=== PATIENT | male | born 1965 | race Caucasian/White ===

== ENCOUNTER 2020-01-12 11:32 | Emergency (ER) | payer BC, OTHER ==
[~2020-01-12] VITALS: Ht 177.8 cm; Wt 113.6 kg
[~2020-01-12 11:32] MED LIST: AMBI10TA PO; IBUP200C25 PO
--- NOTE | 2020-01-12 13:01 | REP ---
Clinical: Right knee pain. Technique: AP, lateral, bilateral oblique and sunrise views of the right knee. Findings: Generalized age-related changes are appreciated. No acute fracture dislocation. No definite effusion. Impression: Generalized age-related changes. Electronically Signed by Oni Navas MD 01/12/2020 12:53 P
[2020-01-12 13:19] VITALS: BP 146/96
== END 2020-01-12 13:23 | disposition home or self-care (01) ==
LOC: M ED 11:32
DX: S83.91XA Sprain of unspecified site of right knee, initial encounter (principal); X58.XXXA Exposure to other specified factors, initial encounter; Y92.89 Other specified places as the place of occurrence of the external cause

== ENCOUNTER → 2020-02-06 | Outpatient (CLI) | payer BC, OTHER ==
--- NOTE | 2020-04-01 09:12 | REP ---
MRI OF THE RIGHT KNEE: HISTORY: Pain. FINDINGS: There is a complex tear of the posterior horn of the medial meniscus. The lateral meniscus appears intact. The cruciate ligaments are intact. There is increase signal on T2-weighted images surrounding the medial collateral ligament compatible with a sprain. The lateral collateral ligament is intact. The extensor mechanism is intact. The medial and lateral patellar retinacula are intact. There is moderate chondromalacia of the medial patellar facet with mild subchondral marrow edema. There is mild to moderate diffuse chondromalacia in the medial joint compartment. There is mild subchondral marrow edema in the medial tibial plateau. There is a small joint effusion. There is a Mares's cyst in the medial popliteal fossa. Maximum craniocaudal dimension is approximately 5 cm, AP maximum dimension 2 cm and transverse is 2 cm. IMPRESSION: Complex tear posterior horn medial meniscus. Sprain or mild partial tear medial collateral ligament. 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 Small joint effusion and Mares's cyst. MTDD
== END ==
LOC: M RAD 07:38
PROVIDERS: ATTEND Orthopaedic Surgery
DX: M22.41 Chondromalacia patellae, right knee (principal); M94.261 Chondromalacia, right knee; M71.21 Synovial cyst of popliteal space [Baker], right knee

== ENCOUNTER → 2020-05-20 | Outpatient (CLI) | payer BC, OTHER ==
--- NOTE | 2020-05-20 14:39 | REP ---
INDICATION: R/O DVT. Status post right knee surgery May 16, 2020. Right thigh swelling COMPARISON: None. TECHNIQUE: Right lower extremity duplex venous on scanning. FINDINGS: The deep veins are anechoic and fully compressible from the groin to the popliteal fossa in the right lower extremity. Color flow imaging is homogeneous. Spectral Doppler interrogation demonstrates intact respiratory variation in flow and normal manual augmentation of flow. There is no evidence of deep vein thrombosis. There is a 17.2 x 3.2 complex hypoechoic collection along the lateral knee joint region extending in the popliteal fossa. This may be postoperative hematoma. IMPRESSION: Negative right lower extremity duplex venous ultrasound. No evidence of deep vein thrombosis. Periarticular fluid collection 17 x 3 cm about the lateral aspect of the knee. Question hematoma. <Electronically signed by Maynor Bella > 05/20/20 1862
== END ==
LOC: M RAD 13:44
PROVIDERS: ATTEND Orthopaedic Surgery
DX: S83.241D Other tear of medial meniscus, current injury, right knee, subsequent encounter (principal)

== ENCOUNTER → 2020-06-22 | Outpatient (CLI) | payer SELFPAY | LOC: M LABSMTC 08:14 | PROVIDERS: ATTEND Pediatrics | DX: Z20.828 Contact with and (suspected) exposure to other viral communicable diseases (principal) ==

== ENCOUNTER → 2021-01-18 | Outpatient (CLI) | payer BC, OTHER | LOC: M LABSMTC 09:56 | PROVIDERS: ATTEND Anesthesiology | DX: Z01.812 Encounter for preprocedural laboratory examination (principal); Z11.52 Encounter for screening for COVID-19 ==

== ENCOUNTER 2021-01-23 09:36 | Day surgery (SDC) | payer BC, OTHER ==
[~2021-01-23] VITALS: Ht 177.8 cm; Wt 113.4 kg
[~2021-01-23 09:36] MED LIST changes: +NS 1,000 ML IV ONE
[2021-01-23] MEDS ORDERED: propofoL 200 MG/20 ML VIAL As Ordered ONE (10:20)
[2021-01-23] MEDS ORDERED: LIDOCAINE 2% 100MG/5ML SDV (FOR ANES.) As Ordered ONE (10:20)
--- NOTE | 2021-01-23 11:18 | ROOR ---
Patient Name: Mert Catalan Procedure Date: 01/23/2021 10:32 AM Date of : 1965 Age: 55 Room: [facility] Gender: Male Note Status: Finalized Procedure: Colonoscopy Indications: Screening in patient at increased risk: Family history of 1st-degree relative with colorectal cancer Providers: Norberto Parikh Jr, MD Referring MD: Kishore Murrieta MD Requesting Provider: Medicines: Propofol per Anesthesia Complications: No immediate complications. Procedure: Pre-Anesthesia Assessment: - Prior to the procedure, a History and Physical was performed, and patient medications and allergies were reviewed. The patient is competent. The risks and benefits of the procedure and the sedation options and risks were discussed with the patient. All questions were answered and informed consent was obtained. Patient identification and proposed procedure were verified by the physician and the nurse in the pre-procedure area and in the procedure room. Mental Status Examination: alert and oriented. Airway Examination: normal oropharyngeal airway and neck mobility. Respiratory Examination: clear to auscultation. CV Examination: normal. ASA Grade Assessment: II - A patient with mild systemic disease. After reviewing the risks and benefits, the patient was deemed in satisfactory condition to undergo the procedure. The anesthesia plan was to use moderate sedation / analgesia (conscious sedation). Immediately prior to administration of medications, the patient was re-assessed for adequacy to receive sedatives. The heart rate, respiratory rate, oxygen saturations, blood pressure, adequacy of pulmonary ventilation, and response to care were monitored throughout the procedure. The physical status of the patient was re-assessed after the procedure. The Colonoscope was introduced through the anus and advanced to the cecum, identified by appendiceal orifice and ileocecal valve. The colonoscopy was performed with moderate difficulty due to a redundant colon. Successful completion of the procedure was aided by changing the patient to a supine position. The patient tolerated the procedure well. The quality of the bowel preparation was adequate. Findings: The rectum, sigmoid colon, descending colon, transverse colon, ascending colon, cecum, appendiceal orifice and ileocecal valve appeared normal. Impression: - The rectum, sigmoid colon, descending colon, transverse colon, ascending colon, cecum, appendiceal orifice and ileocecal valve are normal. - No specimens collected. Recommendation: - Discharge patient to home (ambulatory). - Repeat colonoscopy in 5 years for screening purposes. Procedure Code(s): --- Professional --- 38764, Colonoscopy, flexible; diagnostic, including collection of specimen(s) by brushing or washing, when performed (separate procedure) Diagnosis Code(s): --- Professional --- Z80.0, Family history of malignant neoplasm of digestive organs CPT copyright 2019 [employer]. All rights reserved. The codes documented in this report are preliminary and upon physician coder review may be revised to meet current compliance requirements. Norberto Parikh MD Norberto Parikh Jr, MD 01/23/2021 11:17:48 AM Electronically signed by Norberto Parikh Jr, MD Number of Addenda: 0 Note Initiated On: 01/23/2021 10:32 AM Estimated Blood Loss: Estimated blood loss: none.
[2021-01-23 12:05] VITALS: BP 142/84
== END 2021-01-23 11:30 | disposition home or self-care (01) ==
LOC: M OPP 09:36
PROVIDERS: ATTEND Surgery
DX: Z12.11 Encounter for screening for malignant neoplasm of colon (principal); Z80.0 Family history of malignant neoplasm of digestive organs; K57.30 Diverticulosis of large intestine without perforation or abscess without bleeding

== ENCOUNTER → 2021-11-24 | Outpatient (REF) | payer BC, OTHER ==
[~2021-11-24] MED LIST changes: -NS 1,000 ML IV ONE
== END ==
LOC: M LAB REF 16:19
PROVIDERS: ATTEND Family Medicine
DX: E11.65 Type 2 diabetes mellitus with hyperglycemia (principal)

== ENCOUNTER → 2023-09-22 | Outpatient (REF) | payer BC, OTHER ==
[2023-09-22 16:27] LABS: APPEARANCE, URINE CLEAR (CLEAR); BACTERIA, URINE AUTO NEGATIVE (NEGATIVE); BILIRUBIN, URINE AUTO NEGATIVE (NEGATIVE); BLOOD, URINE BLOOD NEGATIVE (NEGATIVE); COLOR, URINE YELLOW (YELLOW); GLUCOSE, URINE (UA) AUTO 3+ mg/dL (NEGATIVE); KETONE, URINE AUTO NEGATIVE (NEGATIVE); LEUKOCYTE ESTERASE, URINE AUTO NEGATIVE (NEGATIVE); MUCUS, URINE SMALL (NEGATIVE); NITRITE, URINE AUTO NEGATIVE (NEGATIVE); PROTEIN, URINE AUTO 1+ mg/dL (NEGATIVE); RBC, URINE AUTO 1 /HPF (0-3); SPECIFIC GRAVITY URINE AUTO 1.032 (1.002-1.035); SQUAMOUS EPITHELIAL CELL UR AU 0 /HPF (0-6); UROBILINOGEN, URINE AUTO 0.2 mg/dL (0.0-2.0); WBC, URINE AUTO 1 /HPF (0-3)
== END ==
LOC: M SMT 15:31
PROVIDERS: ATTEND Nurse Practitioner Family
DX: R31.29 Other microscopic hematuria (principal)

== ENCOUNTER → 2023-11-17 | Outpatient (REF) | payer OTHER ==
[2023-11-17 16:19] LABS: MAU/CREAT RATIO 12.9 MCG/MG (0.0-30.0)
== END ==
LOC: M LAB REF 15:15
PROVIDERS: ATTEND Nurse Practitioner Family
DX: E11.65 Type 2 diabetes mellitus with hyperglycemia (principal)

== ENCOUNTER → 2024-04-05 | Outpatient (REF) | payer OTHER ==
[2024-04-05 13:21] LABS: APPEARANCE, URINE CLEAR (CLEAR); BACTERIA, URINE AUTO NEGATIVE (NEGATIVE); BILIRUBIN, URINE AUTO NEGATIVE (NEGATIVE); BLOOD, URINE BLOOD NEGATIVE (NEGATIVE); COLOR, URINE STRAW (YELLOW); GLUCOSE, URINE (UA) AUTO 3+ mg/dL (NEGATIVE); KETONE, URINE AUTO NEGATIVE (NEGATIVE); LEUKOCYTE ESTERASE, URINE AUTO NEGATIVE (NEGATIVE); NITRITE, URINE AUTO NEGATIVE (NEGATIVE); PROTEIN, URINE AUTO NEGATIVE (NEGATIVE); RBC, URINE AUTO 0 /HPF (0-3); SPECIFIC GRAVITY URINE AUTO 1.008 (1.002-1.035); SQUAMOUS EPITHELIAL CELL UR AU 0 /HPF (0-6); UROBILINOGEN, URINE AUTO 0.2 mg/dL (0.0-2.0); WBC, URINE AUTO 0 /HPF (0-3)
== END ==
LOC: M SMT 13:03
PROVIDERS: ATTEND Nurse Practitioner Family
DX: R31.29 Other microscopic hematuria (principal)
CPT/HCPCS: 81001; 88108; G0463